=== PATIENT | male | born 1945 | race American Indian/Alaskan Native ===

== ENCOUNTER 2017-03-25 09:42 | Outpatient (CLI) | payer MEDICARE ==
--- NOTE | 2017-03-25 13:40 | Cat Scan Report ---
CT ABDOMEN AND PELVIS WITH CONTRAST: 03/25/17 09:42:00 CLINICAL: Abdominal pain. COMPARISON: None TECHNIQUE: Volumetric acquisition and 1.25 millimeter scan reconstructions without contrast and after the uneventful intravenous injection of 100 cc Omnipaque 300. Consent was obtained prior to the administration of contrast. Oral contrast was also given. FINDINGS: Abdomen: Clear lung bases. Small liver with no liver nodularity or mass. The overall density of the liver is normal. The right lobe measures 10.4 cm in length. Normal gallbladder and bile ducts. Normal stomach, duodenum, pancreas and spleen. Normal adrenal glands. Marked bilateral hydronephrosis and hydroureter. Renal pelves are dilated. The right measures 7.6 cm diameter and the left measures 6.7 cm diameter. No urinary calculus or mass identified. The ureters are dilated down to a distended urinary bladder. Normal aorta and IVC. Normal small bowel. Normal colon. Normal appendix. Pelvis: The urinary bladder is greatly distended and measures approximately 23 cm craniocaudal dimension by 14 cm AP dimension by 19 cm transverse dimension. Mild smooth thickening of the bladder wall. The prostate is enlarged and irregular. It measures 6.9 x 5.9 cm and extends into the floor of the urinary bladder. The ureters are dilated to the bladder. No ureteral or bladder calculus. Bone windows demonstrate no suspicious bone lesion. L5-S1 degenerative disc disease. IMPRESSION:1. Abnormal enlarged prostate and bladder outlet obstruction with massive distention of the urinary bladder, bilateral hydroureter and severe hydronephrosis. 2. Small liver but no stigmata of cirrhosis and no sign of portal hypertension. 3. No lymphadenopathy and no bone lesions.
== END 2017-03-25 09:43 | disposition home or self-care (01) ==
LOC: SPVIMAG 09:42
PROVIDERS: ATTEND Internal Medicine
DX: N13.30 Unspecified hydronephrosis (principal); N40.0 Benign prostatic hyperplasia without lower urinary tract symptoms; N28.82 Megaloureter; N32.89 Other specified disorders of bladder; M51.37 Other intervertebral disc degeneration, lumbosacral region
CPT/HCPCS: 74178; Q9967